=== PATIENT | male | born 2000 | race Caucasian/White ===

== ENCOUNTER 2022-03-04 12:02 | Emergency (ER) | payer MEDICAID ==
[~2022-03-04] VITALS: Ht 152.4 cm; Wt 150.0 kg
[~2022-03-04 12:02] MED LIST: IBUP-2029 MT
[2022-03-04 12:41] VITALS: BP 151/103
[2022-03-04] MEDS ORDERED: ACETAMINOPHEN 325MG TABLET PO NR (13:45)
[2022-03-04 13:47] LABS: BASOPHILS % 0.1 % (0.0-2.0); CHLORIDE 104 mEq/L (98-107); EOSINOPHILS % 1.3 % (0.0-5.0); HEMATOCRIT. 43.1 % (42.0-52.0); HEMOGLOBIN. 14.1 g/dL (14.0-18.0); LYMPHOCYTES % 15.4 % (20.0-50.0); MEAN CORPUSCULAR VOLUME 88.8 fL (80.0-94.0); MEAN PLATELET VOLUME 8.8 fl (7.4-10.4); MONOCYTES % 7.6 % (2.0-8.0); NEUTROPHILS % 75.6 % (40.0-76.0); PLATELET 289 x1000/uL (130-400); RED BLOOD CELL COUNT 4.85 mill/uL (4.7-6.1); RED CELL DISTRIBUTION WIDTH 14.7 % (11.6-14.6)
[2022-03-04] MEDS ORDERED: SULF1TAB48 MT (14:50)
[2022-03-04] MEDS ORDERED: IBUP-2029 MT (14:50)
[2022-03-04] MEDS ORDERED: SULFAMETHOXAZOLE/TRIMETHOPRIM 800/160MG TABLET PO NR (15:00)
== END 2022-03-04 15:46 | disposition home or self-care (01) ==
LOC: ER 12:02
DX: L03.115 Cellulitis of right lower limb (principal); R03.0 Elevated blood-pressure reading, without diagnosis of hypertension; Z68.44 Body mass index [BMI] 60.0-69.9, adult
CPT/HCPCS: 36415; 80053; 85025; 93971; 99284

== ENCOUNTER 2023-02-22 02:36 | Inpatient (IN) | payer MEDICAID ==
[~2023-02-22] VITALS: Ht 165.1 cm; Wt 204.1 kg
[~2023-02-22 02:36] MED LIST changes: +SULF1TAB48 MT
[2023-02-22] MEDS ORDERED: ONDANSETRON HCL 4MG/2ML INJ IV ONE (05:45)
[2023-02-22] MEDS ORDERED: KETOROLAC 30MG/ML VIAL IV ONE (05:45)
[2023-02-22 05:58] LABS: BASOPHILS % 0.3 % (0.0-2.0); EOSINOPHILS % 0.1 % (0.0-5.0); HEMOGLOBIN. 11.9 g/dL (14.0-18.0); LYMPHOCYTES % 23.7 % (20.0-50.0); MEAN CORPUSCULAR HEMOGLOBIN 28.4 pg (28.0-32.0); MEAN CORPUSCULAR HGB CONC 32.1 g/dL (31.0-37.0); MEAN CORPUSCULAR VOLUME 88.5 fL (80.0-94.0); MEAN PLATELET VOLUME 8.6 fl (7.4-10.4); MONOCYTES % 5.5 % (2.0-8.0); NEUTROPHILS % 70.4 % (40.0-76.0); PLATELET 230 x1000/uL (130-400); RED BLOOD CELL COUNT 4.18 mill/uL (4.7-6.1); RED CELL DISTRIBUTION WIDTH 14.6 % (11.6-14.6); WHITE BLOOD COUNT 15.6 x1000/uL (4.5-11.0)
[2023-02-22 06:07] LABS: CHLORIDE 100 mEq/L (98-107); INDEX HEMOLYSI 1 (1-3); INDEX ICTERIC 1 (1-4); INDEX LIPEMIC 1 (1-3); POTASSIUM 3.5 mEq/L (3.5-5.1); SODIUM 131 mEq/L (136-145)
[2023-02-22 06:17] LABS: ALANINE AMINOTRANSFERASE 78 IU/L (13-61); ALBUMIN 2.8 g/dL (3.4-5.0); ASPARTATE AMINOTRANSFERASE 54 IU/L (15-37); BILIRUBIN TOTAL 0.8 mg/dL (0.1-1.0); CALCIUM 8.6 mg/dL (8.5-10.1); CARBON DIOXIDE 24 mEq/L (21-32); CREATININE 0.9 mg/dL (0.6-1.3); GLUCOSE 135 mg/dL (70-105); NT PRO B-TYPE NATRIURETIC PEP 170 pg/mL (5-125); PROTEIN TOTAL 7.8 g/dL (6.0-8.3); UREA NITROGEN BLOOD 10 mg/dL (7-21)
[2023-02-22] MEDS ORDERED: VANCOMYCIN 1G PREMIX 200 ML IV SCH (07:00)
[2023-02-22 08:32] LABS: TROPONIN I HIGH SENSITIVITY 10 ng/L (<78)
[2023-02-22] MEDS ORDERED: MAGNESIUM/ALUMINUM HYDROXIDE/SIMETHICONE 30ML UDC PO PRN (10:30)
[2023-02-22] MEDS ORDERED: DOCUSATE SODIUM 100MG CAPSULE PO PRN (10:30)
[2023-02-22] MEDS ORDERED: CLONIDINE 0.1MG TABLET PO PRN (10:30)
[2023-02-22] MEDS ORDERED: ACETAMINOPHEN 325MG TABLET PO PRN ×2 (10:30)
[2023-02-22] MEDS ORDERED: DEXTROSE 50% WATER 50ML SYRINGE IV PRN (10:30)
[2023-02-22] MEDS ORDERED: LORAZEPAM 0.5MG TABLET PO PRN (10:30)
[2023-02-22] MEDS ORDERED: GUAIFENESIN 200MG/10ML SUGAR FREE UDC PO PRN (10:30)
[2023-02-22] MEDS ORDERED: ONDANSETRON HCL 4MG/2ML INJ IV PRN (10:30)
[2023-02-22] MEDS ORDERED: IPRATROPIUM/ALBUTEROL 0.5-3(2.5)MG/3ML NEB HHN PRN (10:30)
[2023-02-22] MEDS ORDERED: PIPERACILLIN/TAZ 3.375G PREMIX 50 ML IV NR (11:00)
[2023-02-22] MEDS ORDERED: ENOXAPARIN 40MG/0.4ML SYR SUBCUT SCH (11:30)
[2023-02-22 11:32] LABS: INDEX HEMOLYSI 2 (1-3)
[2023-02-22 11:33] LABS: D-DIMER 0.99 mg/L FEU (<0.50); INR 1.1; PROTHROMBIN TIME 11.4 sec (9.6-11.0)
[2023-02-22 11:35] LABS: PHOSPHORUS 3.5 mg/dL (2.5-4.9)
[2023-02-22] MEDS: PANTOPRAZOLE SODIUM 40 MG/VIAL IV SCH (11:45)
[2023-02-22] MEDS ORDERED: POTASSIUM CHLORIDE INJ 40 MEQ in DEXT 5% WATER 500 ML IV NR (12:00)
[2023-02-22 12:02] LABS: VITAMIN B12 SERUM 242 pg/mL (211-911)
[2023-02-22 12:11] LABS: FOLIC ACID (FOLATE) SERUM > 20.00 ng/mL (>5.38)
[2023-02-22] MEDS: INSULIN LISPRO 100 UNITS/ML SUBCUT SCH ×3 (13:20→21:00)
[2023-02-22] MEDS: DEXT 5%/0.9% NACL 1,000 ML IV SCH (13:21)
[2023-02-22] MEDS: BLOOD SUGAR DIAGNOSTIC STRIP TEST SCH ×3 (13:26→21:28)
[2023-02-22 13:27] LABS: CLARITY URINE CLEAR (CLEAR); COLOR URINE DARK YELLOW (YELLOW); GLUCOSE URINE NEGATIVE (NEGATIVE); KETONES URINE NEGATIVE (NEGATIVE); LEUKOCYTE ESTERASE URINE NEGATIVE (NEGATIVE); NITRITE URINE NEGATIVE (NEGATIVE); OCCULT BLOOD URINE NEGATIVE (NEGATIVE); PROTEIN URINE 1+ (NEGATIVE); SPECIFIC GRAVITY URINE 1.017 (1.005-1.030)
[2023-02-22 13:30] LABS: BACTERIA URINE NONE SEEN; RBC URINE NONE SEEN /hpf (0-2); SQUAMOUS EPITHELIAL CELL URINE NONE SEEN /lpf (RARE/1+); YEAST URINE NONE SEEN
[2023-02-22 13:43] LABS: *AMPHETAMINES SCREEN URINE NEGATIVE (NEGATIVE); *BARBITURATES SCREEN URINE NEGATIVE (NEGATIVE); *BENZODIAZEPINES SCREEN URINE NEGATIVE (NEGATIVE); *COCAINE SCREEN URINE PRESUMTIVE POSITIVE (NEGATIVE); CANNABINOID URINE SCREEN PRESUMTIVE POSITIVE (NEGATIVE); ECSTASY MDMA SCREEN URINE NEGATIVE (NEGATIVE); METHADONE URINE SCREEN NEGATIVE (NEGATIVE); OPIATES URINE SCREEN NEGATIVE (NEGATIVE); PHENCYCLIDINE URINE SCREEN NEGATIVE (NEGATIVE)
[2023-02-22] MEDS ORDERED: IOHEXOL-300 100 ML BOTTLE ONE (14:14)
[2023-02-22] MEDS ORDERED: VANCOMYCIN 1500MG in DEXTROSE 5% WATER 250ML IV SCH (17:00)
[2023-02-22] MEDS ORDERED: AMLODIPINE 5MG TABLET PO NR (18:00)
[2023-02-22] MEDS ORDERED: VANCOMYCIN 1.5GM/250ML IVPB 250 ML IV NR (18:45)
[2023-02-22] MEDS ORDERED: PIPERACILLIN/TAZOBACTAM 3.375 G in DEXTROSE 5% WATER 50 ML IV SCH (21:00)
[2023-02-22 21:10] VITALS: BP 133/82; PULSE 109; RESP 20; TEMP 98.2
[2023-02-22 21:30] VITALS: BP 133/82; PULSE 109; RESP 20; TEMP 98.2
[2023-02-22] MEDS: PIPERACILLIN/TAZOBACTAM 3.375 G in DEXTROSE 5% WATER 50 ML IV SCH (23:27)
[2023-02-22 23:58] LABS: CREATINE KINASE MB FRACTION 1.1 ng/mL (0.5-3.6)
[2023-02-23] VITALS: BP 128/60; PULSE 92; RESP 18; TEMP 98.4
[2023-02-23 00:18] LABS: HEPATITIS B SURFACE ANTIGEN NEGATIVE
[2023-02-23 00:47] LABS: HEPATITIS B CORE AB IGM NEGATIVE
[2023-02-23 00:48] LABS: HEPATITIS A AB IGM NEGATIVE (NEGATIVE)
[2023-02-23 00:53] LABS: HEPATITIS C VIR.AB 0.13 INDEXVAL (0.00-0.80)
[2023-02-23] MEDS: DEXT 5%/0.9% NACL 1,000 ML IV SCH ×2 (02:39→14:26)
[2023-02-23] MEDS ORDERED: VANCOMYCIN 1500MG in DEXTROSE 5% WATER 250ML IV SCH (03:00)
[2023-02-23 04:00] VITALS: BP 131/52; PULSE 107; RESP 20; TEMP 98.6
[2023-02-23 06:13] LABS: CHLORIDE 107 mEq/L (98-107); INDEX HEMOLYSI 1 (1-3); INDEX ICTERIC 1 (1-4); INDEX LIPEMIC 1 (1-3); POTASSIUM 3.6 mEq/L (3.5-5.1); SODIUM 134 mEq/L (136-145)
[2023-02-23 06:16] LABS: BASOPHILS % 0.1 % (0.0-2.0); EOSINOPHILS % 0.4 % (0.0-5.0); HEMATOCRIT. 35.6 % (42.0-52.0); LYMPHOCYTES % 22.7 % (20.0-50.0); MEAN CORPUSCULAR HEMOGLOBIN 29.7 pg (28.0-32.0); MEAN CORPUSCULAR HGB CONC 33.7 g/dL (31.0-37.0); MEAN CORPUSCULAR VOLUME 88.1 fL (80.0-94.0); MONOCYTES % 7.5 % (2.0-8.0); NEUTROPHILS % 69.3 % (40.0-76.0); PLATELET 210 x1000/uL (130-400); RED BLOOD CELL COUNT 4.04 mill/uL (4.7-6.1); WHITE BLOOD COUNT 9.6 x1000/uL (4.5-11.0)
[2023-02-23] MEDS: PIPERACILLIN/TAZOBACTAM 3.375 G in DEXTROSE 5% WATER 50 ML IV SCH ×3 (06:22→22:10)
[2023-02-23 06:26] LABS: ALANINE AMINOTRANSFERASE 70 IU/L (13-61); ALBUMIN 2.2 g/dL (3.4-5.0); ASPARTATE AMINOTRANSFERASE 57 IU/L (15-37); BILIRUBIN TOTAL 0.5 mg/dL (0.1-1.0); CALCIUM 7.7 mg/dL (8.5-10.1); CARBON DIOXIDE 27 mEq/L (21-32); CHOLESTEROL 100 mg/dL (<200); CREATININE 0.7 mg/dL (0.6-1.3); GLUCOSE 133 mg/dL (70-105); HDL CHOLESTEROL 15 mg/dL (40-59); LDL CHOLESTEROL 77 mg/dL (5-100); PHOSPHORUS 3.3 mg/dL (2.5-4.9); PROTEIN TOTAL 6.8 g/dL (6.0-8.3); T4 FREE 0.99 ng/dL (0.76-1.46); TRIGLYCERIDE 145 mg/dL (0-150); UREA NITROGEN BLOOD 9 mg/dL (7-21)
[2023-02-23] MEDS: INSULIN LISPRO 100 UNITS/ML SUBCUT SCH ×4 (06:28→20:58)
[2023-02-23] MEDS: BLOOD SUGAR DIAGNOSTIC STRIP TEST SCH ×4 (06:28→20:58)
[2023-02-23 08:00] VITALS: BP 108/63; PULSE 118; RESP 20; TEMP 98.1
[2023-02-23 08:28] LABS: BG BASE EXCESS 0.4 mmol/L (-2.0-2.0); BG CARBOXYHEMOGLOBIN 0.5 % (0.5-1.5); BG DEOXYHEMOGLOBIN 12.9 % (0.0-5.0); BG HCO3 ACT 26.3 mmol/L (22.0-26.0); BG OXYHEMOGLOBIN 86.6 % (94.0-97.0); BG PCO2 48.1 mmHg (35.0-45.0); BG PH 7.356 (7.350-7.450); BG PO2 52.6 mmHg (75.0-100.0); BG SAMPLE SITE RIGHT RADIAL; BG TOTAL HEMOGLOBIN 11.4 g/dL (12.0-18.0); BG VENT MODE ROOM AIR
[2023-02-23] MEDS: PANTOPRAZOLE SODIUM 40 MG/VIAL IV SCH (08:34)
[2023-02-23] MEDS: AMLODIPINE 10MG TABLET PO SCH (08:39)
[2023-02-23 12:00] VITALS: BP 112/64; PULSE 110; RESP 20; TEMP 98
[2023-02-23] MEDS ORDERED: POTASSIUM CHLORIDE INJ 40 MEQ in DEXT 5% WATER 500 ML IV NR (12:30)
[2023-02-23] MEDS ORDERED: POTASSIUM CHLORIDE 20MEQ TABLET SR PO SCH (14:15)
[2023-02-23] MEDS: VANCOMYCIN 1.25GM PMX (XELLIA) 250 ML IV SCH ×2 (14:25→22:10)
[2023-02-23 16:00] VITALS: BP 117/60; PULSE 111; RESP 20; TEMP 98.2
[2023-02-23] MEDS: FUROSEMIDE 40MG TABLET PO SCH (16:33)
[2023-02-23 20:00] VITALS: BP 166/83; PULSE 117; RESP 17; TEMP 97.8
[2023-02-24] VITALS: BP 116/45; PULSE 113; RESP 16; TEMP 98.2
[2023-02-24 04:00] VITALS: BP 113/55; PULSE 114; RESP 17; TEMP 98.4
[2023-02-24] MEDS: DEXT 5%/0.9% NACL 1,000 ML IV SCH (04:20)
[2023-02-24] MEDS: VANCOMYCIN 1.25GM PMX (XELLIA) 250 ML IV SCH (06:31)
[2023-02-24] MEDS: PIPERACILLIN/TAZOBACTAM 3.375 G in DEXTROSE 5% WATER 50 ML IV SCH ×2 (06:31→13:18)
[2023-02-24] MEDS: BLOOD SUGAR DIAGNOSTIC STRIP TEST SCH ×2 (06:35→12:13)
[2023-02-24] MEDS: INSULIN LISPRO 100 UNITS/ML SUBCUT SCH ×2 (06:35→12:13)
[2023-02-24 06:51] LABS: HEMATOCRIT 33.4 % (42.0-52.0); HEMOGLOBIN 10.9 g/dL (14.0-18.0); MEAN CORPUSCULAR HGB CONC 32.8 g/dL (31.0-37.0); MEAN CORPUSCULAR VOLUME 88.4 fL (80.0-94.0); PLATELET 263 x1000/uL (130-400); RED BLOOD CELL COUNT 3.78 mill/uL (4.7-6.1); WHITE BLOOD COUNT 14.1 x1000/uL (4.5-11.0)
[2023-02-24 07:55] LABS: CHLORIDE 104 mEq/L (98-107); INDEX HEMOLYSI 1 (1-3); INDEX ICTERIC 1 (1-4); INDEX LIPEMIC 1 (1-3); POTASSIUM 3.6 mEq/L (3.5-5.1); SODIUM 138 mEq/L (136-145); UREA NITROGEN BLOOD 6 mg/dL (7-21)
[2023-02-24 07:58] LABS: CALCIUM 7.9 mg/dL (8.5-10.1); CARBON DIOXIDE 28 mEq/L (21-32); CREATININE 0.7 mg/dL (0.6-1.3); GLUCOSE 130 mg/dL (70-105); PHOSPHORUS 2.8 mg/dL (2.5-4.9)
[2023-02-24 08:00] VITALS: BP 114/65; PULSE 99; RESP 28; TEMP 98.3
[2023-02-24] MEDS: FUROSEMIDE 40MG TABLET PO SCH (08:23)
[2023-02-24] MEDS: AMLODIPINE 10MG TABLET PO SCH (08:24)
[2023-02-24] MEDS: PANTOPRAZOLE SODIUM 40 MG/VIAL IV SCH (08:24)
[2023-02-24 10:34] VITALS: RESP 19
[2023-02-24] MEDS ORDERED: AMOX125S77 PO ×2 (11:50→12:28)
[2023-02-24] MEDS ORDERED: CIPR500S3 PO (11:58)
[2023-02-24] MEDS ORDERED: FURO-151 PO (11:59)
[2023-02-24 12:00] VITALS: BP 121/87; PULSE 110; RESP 20; TEMP 98.1
[2023-02-24 13:11] LABS: HIV SCREEN 4G Non Reactive (Non Reactive)
[2023-02-24] MEDS ORDERED: VANCOMYCIN 1500MG in DEXTROSE 5% WATER 250ML IV SCH (14:00)
[2023-02-24 15:16] VITALS: BP 117/69; PULSE 102; TEMP 98.3; O2SAT 97
[2023-02-25] MEDS ORDERED: FAMOTIDINE 20MG/2ML VIAL IV SCH (09:00)
== END 2023-02-24 19:18 | disposition home or self-care (01) | DRG 720 ==
LOC: ER 02:36 → 8WST 06:58 → EDBEDREQ 07:03 → EDBEDREQTM 07:03
PROVIDERS: ADMIT Internal Medicine; ATTEND Internal Medicine
DX: A41.9 Sepsis, unspecified organism (principal); J96.21 Acute and chronic respiratory failure with hypoxia; G92.8 Other toxic encephalopathy; E87.6 Hypokalemia; I10 Essential (primary) hypertension; L03.116 Cellulitis of left lower limb; Z68.43 Body mass index [BMI] 50.0-59.9, adult; E87.1 Hypo-osmolality and hyponatremia; J96.22 Acute and chronic respiratory failure with hypercapnia; E88.81 Metabolic syndrome and other insulin resistance; R74.01 Elevation of levels of liver transaminase levels; F19.90 Other psychoactive substance use, unspecified, uncomplicated; E66.2 Morbid (severe) obesity with alveolar hypoventilation; Z82.49 Family history of ischemic heart disease and other diseases of the circulatory system; S80.822A Blister (nonthermal), left lower leg, initial encounter; X58.XXXA Exposure to other specified factors, initial encounter; Y93.89 Activity, other specified; Y92.89 Other specified places as the place of occurrence of the external cause; Y99.8 Other external cause status
CPT/HCPCS: 36415; 36600; 71045; 73702; 80048; 80053; 80061; 80202; 80305; 81003; 82375; 82550; 82553; 82607; 82746; 82805; 82962; 83036; 83605; 83735; 83880; 83930; 84100; 84145; 84439; 84443; 84484; 85025; 85027; 85379; 86705; 86709; 86803; 87070; 87340; 87389; 93005; 93970; 94660; 97162; 97165; 99285; C9113; J1650; J1885; J2405; J2543; J3370; J3480; J7060; Q9967

== ENCOUNTER 2023-04-16 05:10 | Emergency (ER) | payer MEDICAID ==
[~2023-04-16] VITALS: Ht 165.1 cm; Wt 183.0 kg
[~2023-04-16 05:10] MED LIST changes: +AMOX125S77 PO; +CIPR500S3 PO; +FURO-151 PO
[2023-04-16 05:18] VITALS: BP 147/93; TEMP 98.1; O2SAT 97
[2023-04-16 05:20] VITALS: PULSE 107; RESP 16
== END 2023-04-16 05:54 | disposition home or self-care (01) ==
LOC: ER 05:10
DX: Z00.00 Encounter for general adult medical examination without abnormal findings (principal)
CPT/HCPCS: 99281